=== PATIENT | female | born 1975 | race Two or more races ===

== ENCOUNTER 2019-08-28 07:48 | Emergency (ER) | payer OTHER, SELFPAY ==
[~2019-08-28] VITALS: Ht 160 cm; Wt 53.1 kg
[2019-08-28 08:25] VITALS: Ht 160 cm; Wt 53.1 kg
[2019-08-28 08:26] VITALS: BP 116/78
== END 2019-08-28 09:17 | disposition home or self-care (01) ==
LOC: ED 07:48
DX: R53.1 Weakness (principal); E03.9 Hypothyroidism, unspecified; F31.9 Bipolar disorder, unspecified; Z20.828 Contact with and (suspected) exposure to other viral communicable diseases
CPT/HCPCS: U0003-CS